=== PATIENT | male | born 1980 | race Two or more races ===

== ENCOUNTER 2024-10-19 01:48 | Emergency (ER) | payer OTHER, SELFPAY ==
--- NOTE | ~2024-10-19 | XR_ITS ---
EXAMINATION: XR HAND, LEFT CLINICAL INFORMATION: thumb pain COMPARISON: None available. TECHNIQUE: PA, lateral, and oblique views of the left hand. FINDINGS: The bones and soft tissues are normal. No fracture. Alignment is anatomic. Joint spaces are maintained. No erosions or soft tissue calcifications. XR/XR hand LT min 3V IMPRESSION: No significant abnormality identified. Electronically signed by: Brady Liz MD 10/19/2024 03:02 AM [place]
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
[2024-10-19 02:01] VITALS: BP 130/80; BP 166/00; PULSE 80; PULSE 94; RESP 18; TEMP 37.3; O2SAT 97; O2SAT 99; BMI 35.9
[2024-10-19] MEDS: Ibuprofen 800 MG TABLET PO (02:14)
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
[2024-10-19 04:02] VITALS: BP 102/66; PULSE 74; RESP 16; TEMP 37.1; O2SAT 96
[2024-10-19 04:04] VITALS: BP 102/66; PULSE 74; RESP 16; TEMP 37.1; O2SAT 96
== END 2024-10-19 04:05 | disposition home or self-care (01) ==
PROVIDERS: Emergency Provider Internal Medicine
DX: S66.212A Strain of extensor muscle, fascia and tendon of left thumb at wrist and hand level, initial encounter (principal); S89.91XA Unspecified injury of right lower leg, initial encounter; V43.52XA Car driver injured in collision with other type car in traffic accident, initial encounter; Y93.89 Activity, other specified; Y92.488 Other paved roadways as the place of occurrence of the external cause; Y99.8 Other external cause status
CPT/HCPCS: 73130; 73562; 99283; 99284